=== PATIENT | male | born 1950 | race Caucasian/White ===

== ENCOUNTER → 2018-06-27 | Outpatient (CLI) | payer BC ==
--- NOTE | 2018-06-28 12:36 | ECHO ---
DATE OF PROCEDURE: 06/27/2018 REFERRING PHYSICIAN: Dr. Bajwa INDICATION: Cardiac murmur, unspecified. HEIGHT: 177 cm WEIGHT: 111.6 kg 2D MEASUREMENTS: Aortic root: 3.9 cm Ventricular septum: 1.22 cm Posterior wall: 1.24 cm Left ventricle diastole: 3.85 cm Left atrium: 3.5 cm Left atrium volume index: 32 Aortic annulus: 2.2 cm DOPPLER MEASUREMENTS: Very mild aortic regurgitation. Mild aortic stenosis. Peak aortic valve velocity 254 cm/s Peak aortic valve gradient: 26 mmHg Mean aortic valve gradient: 12 mmHg Aortic valve VTI 45.5 cm LVOT velocity 96.1 cm/s LVOT/VTI 19.5 cm Mitral E velocity 80.0 cm/s Mitral A velocity 78.6 cm/s Mitral deceleration time 282 ms Trace tricuspid regurgitation. Pulmonary peak systolic pressure 21 mmHg MITRAL ANNULAR TISSUE DOPPLER: E prime septal: 6.5 cm/s E prime lateral: 7.51 cm/s DESCRIPTION: Rhythm was sinus. Image quality was adequate. This was a 2D, M-mode, color flow Doppler and pulse wave Doppler examination and included mitral annular tissue Doppler. CONCLUSIONS: 1. Severe focal thickening and focal calcific deposits of a 3-cusp aortic valve. No vegetation of the aortic cusps. Moderate reduction in aortic cusp mobility. Mild aortic stenosis. Very mild aortic regurgitation. 2. Very mild concentric left ventricular hypertrophy. Normal regional LV wall motion and wall thickening. Normal LV systolic function. Left ventricular ejection fraction of 62% (3D). Grade II LV diastolic dysfunction (normal LV filling pattern). 3. Mild dilatation of aortic root at the level of the sinus Valsalva. 4. Mild left atrial dilatation by left atrial volume index. 5. Otherwise normal appearing echocardiogram Doppler findings.
== END ==
LOC: M CARPUL 08:06
PROVIDERS: ATTEND Family Medicine
DX: I77.810 Thoracic aortic ectasia (principal); I51.7 Cardiomegaly

== ENCOUNTER → 2020-06-24 | Outpatient (REF) | payer BC ==
[2020-06-24 11:48] LABS: BLOOD UREA NITROGEN 14 MG/DL (7-18); CALCIUM LEVEL 9.3 MG/DL (8.8-10.2); CARBON DIOXIDE LEVEL 30 MEQ/L (21-32); CHLORIDE LEVEL 105 MEQ/L (98-107); CHOLESTEROL LEVEL 178 MG/DL (<200); CREATININE FOR GFR 0.87 MG/DL (0.70-1.30); GLOMERULAR FILTRATION RATE > 60.0 (>42); GLUCOSE, FASTING 105 MG/DL (70-100); HDL CHOLESTEROL 40 MG/DL (>40); LDL CHOLESTEROL 119 MG/DL (<100); NON-HDL-C 138 MG/DL; POTASSIUM SERUM 4.5 MEQ/L (3.5-5.1); SODIUM LEVEL 140 MEQ/L (136-145); TRIGLYCERIDES LEVEL 95 MG/DL (<150)
== END ==
LOC: M SFHCCLAY 09:15
PROVIDERS: ATTEND Family Medicine
DX: Z00.00 Encounter for general adult medical examination without abnormal findings (principal); Z13.1 Encounter for screening for diabetes mellitus; E78.5 Hyperlipidemia, unspecified; I11.0 Hypertensive heart disease with heart failure